=== PATIENT | male | born 1985 | race Caucasian/White ===

== ENCOUNTER 2020-07-24 08:18 | Emergency (ER) | payer SELFPAY ==
[~2020-07-24] VITALS: Ht 172.7 cm; Wt 73.2 kg
[2020-07-24] MEDS ORDERED: IV NORMAL SALINE 1000ML BAG 1,000 ML IV ONE ×2 (08:30→11:15)
--- NOTE | 2020-07-24 08:30 | ED.ADGEN ---
General Adult EDM: Chief Complaint: SUICDAL IDEATION HPI: HPI: Patient is a 35 year old male brought in by EMS. Report given by EMS that the patient had originally called for difficulty breathing, patient had recently b een discharged to the [facility] because he was homeless and Covid positive. Was seen at [facility] 3 days ago. When EMS arrived they had difficulty getting in the room, when able to gain access he said patient was on the floor having generalized convulsions, was given 10 mg of Versed IM. Said they obtain some history from the patient in route patient was awake and talking to them, patient not responding verbally on arrival. EMS brought medications which include phenytoin and Keppra, has a bottle of hydroxyzine that was prescribed July 15 and is empty. He reports he will EMS that he had taken a bunch of them but not exactly how many last night. Review of Systems: Review of Systems: Unable to obtain secondary to patient's mental status Current Medications: Current Medications Medications (Trade) Dose Ordered Sig/Deonte Start Time Stop Time Status Last Admin Dose Admin Ketorolac Tromethamine (Toradol 15mg Vial) 15 mg 1X ONCE 07/24/20 14:00 07/24/20 14:01 DC 07/24/20 14:22 15 MG Nicotine (Nicoderm Cq 14mg) 1 patch 1X ONCE 07/24/20 17:50 07/24/20 17:51 DC 07/24/20 17:50 1 PATCH Sodium Chloride 1,000 ml @ 1,000 mls/hr 1X ONCE 07/24/20 11:15 07/24/20 12:14 DC 07/24/20 11:15 1,000 MLS/HR Allergies: Allergies: Allergies Coded Allergies Type Severity Reaction Last Updated Verified No Known Drug Allergies 07/24/20 No Physical Exam: PE: Constitutional: Well developed, well nourished, no acute distress, non-toxic appearance. [] HENT: Normocephalic, atraumatic, bilateral external ears normal, nose normal. Bite to tongue with dried blood in mouth [] Eyes: PERRLA, conjunctiva normal, no discharge. Pupils 4 mm [] Neck: No rigidity, supple, no stridor. [] Cardiovascular: Regular rate and rhythm, brisk cap refill [] Lungs & Thorax: Non labored symmetric respirations, no tachypnea or respiratory distress [] Abdomen: Soft, nondistended. Skin: Warm, dry, no erythema, no rash. [] Back: Unremarkable Extremities: No deformities, range of motion grossly intact, no lower extremity edema [] Neurologic: Alert and oriented X 3, no focal deficits noted. [] Psychologic: Affect normal, judgement normal, mood normal. [] Current Patient Data: Labs: Laboratory Tests Test 07/24/20 08:30 07/24/20 08:55 07/24/20 09:09 07/24/20 09:44 White Blood Count 11.3 x10^3/uL (4.0-11.0) H Red Blood Count 4.90 x10^6/uL (4.30-5.70) Hemoglobin 14.1 g/dL (13.0-17.5) Hematocrit 42.0 % (39.0-53.0) Mean Corpuscular Volume 86 fL (79-100) Mean Corpuscular Hemoglobin 29 pg (25-35) Mean Corpuscular Hemoglobin Concent 33 g/dL (31-37) Red Cell Distribution Width 13.8 % (11.5-14.5) Platelet Count 394 x10^3/uL (140-400) Neutrophils (%) (Auto) 82 % (31-73) H Lymphocytes (%) (Auto) 11 % (24-48) L Monocytes (%) (Auto) 7 % (0-9) Eosinophils (%) (Auto) 0 % (0-3) Basophils (%) (Auto) 0 % (0-3) Neutrophils # (Auto) 9.3 x10^3/uL (1.8-7.7) H Lymphocytes # (Auto) 1.2 x10^3/uL (1.0-4.8) Monocytes # (Auto) 0.7 x10^3/uL (0.0-1.1) Eosinophils # (Auto) 0.0 x10^3/uL (0.0-0.7) Basophils # (Auto) 0.0 x10^3/uL (0.0-0.2) Urine Collection Type U cath Urine Color Yellow Urine Clarity Clear Urine pH 5.5 (<5.0-8.0) Urine Specific [place] 1.010 (1.000-1.030) Urine Protein Negative mg/dL (NEG-TRACE) Urine Glucose (UA) Negative mg/dL (NEG) Urine Ketones (Stick) Negative mg/dL (NEG) Urine Blood Negative (NEG) Urine Nitrite Negative (NEG) Urine Bilirubin Negative (NEG) Urine Urobilinogen Dipstick 0.2 mg/dL (0.2 mg/dL) Urine Leukocyte Esterase Negative (NEG) Urine RBC 0 /HPF (0-2) Urine WBC 0 /HPF (0-4) Urine Amorphous Sediment Present /HPF Urine Bacteria 0 /HPF (0-FEW) Urine Mucus Slight /LPF Urine Opiates Screen Neg (NEG) Urine Methadone Screen Neg (NEG) Urine Barbiturates Neg (NEG) Urine Phencyclidine Screen Neg (NEG) Urine Amphetamine/Methamphetamine Pos (NEG) Urine Benzodiazepines Screen Pos (NEG) Urine Cocaine Screen Neg (NEG) Urine Cannabinoids Screen Neg (NEG) Urine Ethyl Alcohol Neg (NEG) Sodium Level 141 mmol/L (136-145) Potassium Level 4.1 mmol/L (3.5-5.1) Chloride Level 102 mmol/L (98-107) Carbon Dioxide Level 26 mmol/L (21-32) Anion Gap 13 (6-14) Blood Urea Nitrogen 11 mg/dL (8-26) Creatinine 0.8 mg/dL (0.7-1.3) Estimated GFR (Cockcroft-Gault) 109.4 BUN/Creatinine Ratio 14 (6-20) Glucose Level 93 mg/dL (70-99) Lactic Acid Level 2.9 mmol/L (0.4-2.0) H Calcium Level 9.2 mg/dL (8.5-10.1) Phosphorus Level 3.7 mg/dL (2.6-4.7) Magnesium Level 2.1 mg/dL (1.8-2.4) Total Bilirubin 0.2 mg/dL (0.2-1.0) Aspartate Amino Transferase (AST) 21 U/L (15-37) Alanine Aminotransferase (ALT) 83 U/L (16-63) H Alkaline Phosphatase 104 U/L (46-116) Creatine Kinase 161 U/L (39-308) Myoglobin 227 ng/mL (16-96) H Troponin I Quantitative < 0.017 ng/mL (0.000-0.055) Total Protein 7.1 g/dL (6.4-8.2) Albumin 3.8 g/dL (3.4-5.0) Albumin/Globulin Ratio 1.2 (1.0-1.7) Salicylates Level < 2.8 mg/dL (2.8-20.0) L Salicylate Last Dose Date Unknown Salicylate Last Dose Time Unknown Acetaminophen Level < 2 mcg/ml (10-30) L Acetaminophen Last Dose Date Unknown Acetaminophen Last Dose Time Unknown Phenytoin (Dilantin) Level 0.5 mcg/mL (10.0-20.0) L Phenytoin Last Dose Date Unknown Phenytoin Last Dose Time Unknown Ethyl Alcohol Level < 10 mg/dL (0-10) D-Dimer (Lilliam) 1.10 ug/mlFEU (0.00-0.50) H Test 07/24/20 11:05 07/24/20 14:02 07/24/20 14:16 O2 Saturation 96 % (92-99) Arterial Blood pH 7.45 (7.35-7.45) Arterial Blood pCO2 at Patient Temp 33 mmHg (35-46) L Arterial Blood pO2 at Patient Temp 80 mmHg (85-108) L Arterial Blood HCO3 23 mmol/L (21-28) Arterial Blood Base Excess -1 mmol/L (-3-3) FiO2 21 SARS-CoV-2 Antigen (Rapid) Negative (NEGATIVE) Lactic Acid Level 1.0 mmol/L (0.4-2.0) Laboratory Tests 07/24/20 08:30 Laboratory Tests 07/24/20 09:09 Vital Signs: Vital Signs Date Time Temp Pulse Resp B/P (MAP) Pulse Ox O2 Delivery O2 Flow Rate FiO2 07/24/20 20:00 87 122/75 (91) 96 Room Air 07/24/20 19:30 18 07/24/20 16:02 98.0 07/24/20 08:18 98.0 98.0 EKG: EKG: Sinus tachycardia, heart rate 104 bpm, no ST elevation or depression, no ectopy, normal intervals., Normal axis [] Heart Score: Risk Factors: Risk Factors: DM, Current or recent (<one month) smoker, HTN, HLP, family history of CAD, obesity. Risk Scores: Score 0 - 3: 2.5% MACE over next 6 weeks - Discharge Home Score 4 - 6: 20.3% MACE over next 6 weeks - Admit for Clinical Observation Score 7 - 10: 72.7% MACE over next 6 weeks - Early Invasive Strategies Radiology/Procedures: Radiology/Procedures: CT HEAD INDICATION: Fall: COMPARISON: None Available. Exposure: One or more of the following individualized dose reduction techniques were utilized for this examination: 1. Automated exposure control 2. Adjustment of the mA and/or kV according to patient size 3. Use of iterative reconstruction technique TECHNIQUE: 5 mm contiguous axial images were obtained from the skull base to the vertex in both bone and soft tissue algorithm. FINDINGS: No abnormal attenuation within the brain parenchyma. No evidence of acute intracranial hemorrhage. No extra-axial fluid collections. No mass effect or midline shift. Ventricular size is appropriate. Basal cisterns are patent. No fractures identified.Johnson-white differentiation is preserved.Metallic density identified in the left orbital region.. Paranasal sinuses and mastoid air cells are clear. IMPRESSION: Unremarkable CT examination of the head without contrast, as above. Specifically, no evidence of an acute intracranial abnormality. CT CERVICAL SPINE INDICATION: Fall, seizure COMPARISON: None Available. Technique: 2.5 mm contiguous axial images were obtained from the skull base through the cervicothoracic junction in both bone and soft tissue algorithm. Additional sagittal and coronal reconstructions were also performed. FINDINGS: Vertebral body height and alignment are maintained. Cervical lordosis is preserved. The lateral masses of C1 are aligned upon C2. No fractures identified. The bony canal is patent throughout. No significant degenerative changes are identified. The paraspinous soft tissues are unremarkable. Visualized intracranial contents are unremarkable. Lung apices are clear. IMPRESSION: Unremarkable CT examination of the cervical spine, as above. Specifically, no fractures are seen. [] INDICATION: Reason: dyspnea / Spl. Instructions: / History: COMPARISON: None. FINDINGS: Single view of chest obtained. Mild elevation of the right hemidiaphragm. Cardiac mediastinal silhouette is upper limits of normal in size. No definite focal infiltrate. IMPRESSION: * No definite focal airspace consolidation. Course & Med Decision Making: Course & Med Decision Making Pertinent Labs and Imaging studies reviewed. (See chart for details) Patient is fluid control, recommend observation for 6 to 8 hours postingestion. Tachycardia resolved with fluids patient more awake and does acknowledge that he took an overdose of his hydroxyzine, states he took it was left of the bottle but does not know exactly how many pills were left. Patient would not disclose what time he took medications just that it was last night. Patient is reluctant to answer questions and will only give brief yes or no answers. Patient states that he did take the pills because been depressed but would not state that he is suicidal or is try to harm himself. Will not answer if he took any other medications or drugs. Because the patient's positive Covid status PAT will do evaluation via phone. Determined patient would be appropriate for inpatient hospitalization for overdose. Patient medically cleared and had negative Covid swab emergency de partment. Patient transferred to [facility]. Patient cooperative and agreeable to plan [] Dragon Disclaimer: Jackie Disclaimer: This electronic medical record was generated, in whole or in part, using a voice recognition dictation system. Departure Departure Impression: Primary Impression: Hydroxyzine overdose of undetermined intent Disposition: 02 DC/TRF OTHER SHORT TERM HOS Condition: STABLE ABELARDO GUERRA MD Jul 24, 2020 08:30
[2020-07-24 08:44] LABS: BASO % 0 % (0-3); EOS % 0 % (0-3); HEMOGLOBIN 14.1 g/dL (13.0-17.5); LYMPH # 1.2 x10^3/uL (1.0-4.8); LYMPH % 11 % (24-48); MEAN CORPUSCULAR HEMOGLOBIN 29 pg (25-35); MEAN CORPUSCULAR HGB CONC 33 g/dL (31-37); MEAN CORPUSCULAR VOLUME 86 fL (79-100); MONO # 0.7 x10^3/uL (0.0-1.1); MONO % 7 % (0-9); NEUT # 9.3 x10^3/uL (1.8-7.7); NEUT % 82 % (31-73); PLATELET COUNT 394 x10^3/uL (140-400); RED CELL DISTRIBUTION WIDTH 13.8 % (11.5-14.5); WHITE BLOOD COUNT 11.3 x10^3/uL (4.0-11.0)
--- NOTE | 2020-07-24 08:57 | RAD ---
INDICATION: Reason: dyspnea / Spl. Instructions: / History: COMPARISON: None. FINDINGS: Single view of chest obtained. Mild elevation of the right hemidiaphragm. Cardiac mediastinal silhouette is upper limits of normal in size. No definite focal infiltrate. IMPRESSION: * No definite focal airspace consolidation. Electronically signed by: Ata Jc MD (07/24/2020 8:55 AM) [id number]
[2020-07-24 09:21] LABS: BILIRUBIN,URINE NEGATIVE (NEG); CLARITY,URINE CLEAR; COLOR,URINE YELLOW; NITRITE,URINE NEGATIVE (NEG); PH,URINE 5.5 (<5.0-8.0); PROTEIN,URINE NEGATIVE (NEG-TRACE); UROBILINOGEN,URINE 0.2 mg/dL (0.2 mg/dL)
[2020-07-24 09:27] LABS: BARBITURATES NEG (NEG); BENZODIAZEPINES POS (NEG); CANNABINOIDS NEG (NEG); COCAINE NEG (NEG); METHADONE NEG (NEG); OPIATES NEG (NEG); PHENCYCLIDINE NEG (NEG)
[2020-07-24 09:28] LABS: AMPHETAMINE/METHAMPHETAMINE POS (NEG)
[2020-07-24 09:40] LABS: AMORPHOUS SEDIMENT,UR PRESENT /HPF
[2020-07-24 09:41] LABS: BACTERIA,URINE 0 /HPF (0-FEW); RBC,URINE 0 /HPF (0-2); WBC,URINE 0 /HPF (0-4)
[2020-07-24 10:00] LABS: ANION GAP 13 (6-14); BLOOD UREA NITROGEN 11 mg/dL (8-26); BUN/CREATININE RATIO 14 (6-20); CALCIUM 9.2 mg/dL (8.5-10.1); CARBON DIOXIDE 26 mmol/L (21-32); CHLORIDE 102 mmol/L (98-107); CREATININE 0.8 mg/dL (0.7-1.3); GFR 109.4; GLUCOSE 93 mg/dL (70-99); POTASSIUM 4.1 mmol/L (3.5-5.1); SODIUM 141 mmol/L (136-145)
[2020-07-24 10:09] LABS: ALBUMIN 3.8 g/dL (3.4-5.0); ALBUMIN/GLOBULIN RATIO 1.2 (1.0-1.7); ALK PHOS 104 U/L (46-116); ALT (SGPT) 83 U/L (16-63); AST (SGOT) 21 U/L (15-37); CREATINE KINASE 161 U/L (39-308); MAGNESIUM 2.1 mg/dL (1.8-2.4); PHENY 0.5 mcg/mL (10.0-20.0); PHOSPHORUS 3.7 mg/dL (2.6-4.7); TOTAL BILIRUBIN 0.2 mg/dL (0.2-1.0); TOTAL PROTEIN 7.1 g/dL (6.4-8.2)
[2020-07-24 10:13] LABS: MYOGLOBIN 227 ng/mL (16-96)
--- NOTE | 2020-07-24 11:09 | RAD ---
Examination: CT head and cervical spine without contrast CT HEAD INDICATION: Fall: COMPARISON: None Available. Exposure: One or more of the following individualized dose reduction techniques were utilized for thi s examination: 1. Automated exposure control 2. Adjustment of the mA and/or kV according to patient size 3. Use of iterative reconstruction technique TECHNIQUE: 5 mm contiguous axial images were obtained from the skull base to the vertex in both bone and soft tissue algorithm. FINDINGS: No abnormal attenuation within the brain parenchyma. No evidence of acute intracranial hemorrhage. No extra-axial fluid collections. No mass effect or midline shift. Ventricular size is appropriate. Basal cisterns are patent. No fractures identified.Johnson-white differentiation is preserved.Metallic density identified in the le ft orbital region.. Paranasal sinuses and mastoid air cells are clear. IMPRESSION: Unremarkable CT examination of the head without contrast, as above. Specifically, no evidence of an acute intracranial abnormality. CT CERVICAL SPINE INDICATION: Fall, seizure COMPARISON: None Available. Technique: 2.5 mm contiguous axial images were obtained from the skull base through the cervicothorac ic junction in both bone and soft tissue algorithm. Additional sagittal and coronal reconstructions were also performed. FINDINGS: Vertebral body height and alignment are maintained. Cervical lordosis is preserved. The l ateral masses of C1 are aligned upon C2. No fractures identified. The bony canal is patent throughout. No significant degenerative changes are identified. The paraspinous soft tissues are unremarkable. Visualized intracranial contents are unremarkable. L jamir apices are clear. IMPRESSION: Unremarkable CT examination of the cervical spine, as above. Specifically, no fractures are seen. Electronically signed by: Stanley Sams MD (07/24/2020 11:07 AM) [id number]
[2020-07-24 11:15] LABS: BASE EXCESS ABG -1 mmol/L (-3-3); HCO3 ABG 23 mmol/L (21-28); PCO2 ABG 33 mmHg (35-46); PO2 ABG 80 mmHg (85-108); SAT O2 ABG 96 % (92-99)
[2020-07-24 11:18] LABS: FIO2 ABG 21
[2020-07-24 11:46] LABS: ACETAMIN < 2 mcg/ml (10-30); SALIC < 2.8 mg/dL (2.8-20.0)
[2020-07-24] MEDS ORDERED: KETOROLAC 15 MG/ML VIAL. IVP ONE (14:00)
[2020-07-24] MEDS ORDERED: NICOTINE 14MG PATCH. TD ONE (17:50)
--- NOTE | 2020-07-24 19:10 | EKG ---
[facility] [address] [place] [address] Test Date: 2020-07-24 Test Time: 08:27:38 Pat Name: SHARON JUSTICE Department: Room: Gender: [employer]: AC : 1985 Requested By: ABELARDO GUERRA Order Number: [id number] Reading MD: Measurements Intervals [place] Rate: 104 P: 25 AL: 136 QRS: 42 QRSD: 88 T: 28 QT: 352 QTc: 469 Interpretive Statements SINUS TACHYCARDIA LEFT ATRIAL ABNORMALITY ABNORMAL ECG RI6.02 No previous ECG available for comparison
[2020-07-24 20:00] VITALS: BP 122/75
--- NOTE | 2020-07-26 17:08 | NUR ---
IP: Notified [facility] of pt COVID positive results. Pt already discharged to an unknown location. Pt was previously positive when seen in the ED.
== END 2020-07-24 20:26 | disposition short-term general hospital (02) ==
LOC: ER 08:18
DX: T43.594A Poisoning by other antipsychotics and neuroleptics, undetermined, initial encounter (principal); U07.1 COVID-19; R06.00 Dyspnea, unspecified; R56.9 Unspecified convulsions; R00.0 Tachycardia, unspecified; Y92.89 Other specified places as the place of occurrence of the external cause
CPT/HCPCS: 36600; 70450; 71045; 72125; 80053; 80177; 80185; 80307; 80329; 81001; 82550; 82805; 83605; 83735; 83874; 84100; 84484; 85025; 85379; 87426; 93005; 96361; 96374; 99285; C9803; G0480; J1885; J7030; U0003; 36415